=== PATIENT | male | born 1985 | race Caucasian/White ===

== ENCOUNTER 2016-11-01 16:13 | Emergency (ER) | payer BC, OTHER ==
[2016-11-01 18:24] VITALS: BP 130/80
--- NOTE | 2016-11-01 19:00 | UC ---
Throat Pain/Nasal Cr HPI - HPI Summary HPI Summary: Nasal congestion, cough, ST, chilled starting 2 days ago. Mucus is all yellow and green, worried he has "some kind of infection." Having occasional wheezing but doesn't typically have breathing problems. Also has been having L shoulder pain for some months, no hx of injury or surgery , would like referral to see someone for this. - History of Current Complaint Chief Complaint: UCRespiratory Stated Complaint: COUGH/CONGESTION/LEFT SHOULDER Time Seen by Provider: 11/01/16 18:55 Hx Obtained From: Patient Onset/Duration: Gradual Onset, Lasting Days Severity: Moderate Cough: Sputum Appears - yellow Associated Signs & Symptoms: Positive: Wheezing, Nasal Discharge, Fever - first night only. Negative: Vomiting, Rash - Allergies/Home Medications Allergies/Adverse Reactions: Allergies Allergy/AdvReac Type Severity Reaction Status Date / Time No Known Allergies Allergy Verified 11/01/16 18:24 Home Medications: Home Medications Pseudoephedrine-Guaifenesin [Mucinex D 60-600 mg] 1 tab PO ONCE 11/01/16 [ History Confirmed 11/01/16] PMH/Surg Hx/FS Hx/Imm Hx Previously Healthy: Yes Cardiovascular History Of: Denies: Pacemaker/ICD - Surgical History Surgical History: Yes Surgery Procedure, Year, and Place: ENDOSCOPY-; Carpal tunnel release to extract ganglion cyst 10/2012 - Family History Known Family History: Positive: Cardiac Disease - mother Family History: no known history of cardio-vascular disorders - Social History Occupation: Employed Part-time Alcohol Use: Occasionally Substance Use Type: None Smoking Status (MU): Heavy Every Day Tobacco Smoker Type: Cigarettes Amount Used/How Often: 1/2 PPD Length of Time of Smoking/Using Tobacco: 5 years Have You Smoked in the Last Year: Yes Household Exposure Type: Cigarettes - Immunization History Most Recent Influenza Vaccination: Not the Season Review of Systems Constitutional: Chills Skin: Negative Eyes: Negative ENT: Sore Throat, Nasal Discharge Respiratory: Cough Cardiovascular: Negative Gastrointestinal: Negative Genitourinary: Negative Motor: Negative Neurovascular: Negative Musculoskeletal: Arthralgia Neurological: Negative Psychological: Negative All Other Systems Reviewed And Are Negative: Yes Physical Exam Triage Information Reviewed: Yes Appearance: Well-Appearing, No Pain Distress, Well-Nourished Vital Signs: Initial Vital Signs Temp 99.2 F 11/01/16 18:19 Pulse 89 11/01/16 18:19 Resp 16 11/01/16 18:19 BP 130/80 11/01/16 18:19 Pulse Ox 99 11/01/16 18:19 Vital Signs Reviewed: Yes Eye Exam: Normal Eyes: Positive: Conjunctiva Clear ENT: Positive: Hearing grossly normal, Pharynx normal, Nasal congestion, Nasal drainage, TMs normal. Negative: Tonsillar swelling Dental Exam: Normal Neck exam: Normal Neck: Positive: Supple, Nontender, No Lymphadenopathy Respiratory: Positive: No respiratory distress, Wheezing - minimal Cardiovascular Exam: Normal Cardiovascular: Positive: RRR, No Murmur Musculoskeletal: Positive: ROM Limited @ - L shoulder, pain with abduction past 90 deg Neurological Exam: Normal Psychological Exam: Normal Skin Exam: Normal Throat Pain/Nasal Course/Dx - Differential Dx/Diagnosis Provider Diagnoses: URI, likely viral. L shoulder pain Discharge - Discharge Plan Condition: Stable Disposition: HOME Prescriptions: Albuterol HFA INHALER* [Ventolin HFA Inhaler*] 1 - 2 puff INH Q4H PRN #1 mdi PRN Reason: wheeze, cough Benzonatate CAP* [Tessalon CAP*] 100 mg PO TID PRN #30 cap PRN Reason: Cough Patient Education Materials: Upper Respiratory Infection (ED), Shoulder Pain ( ED) Forms: *Work Release Referrals: Amarjit Leon MD [Primary Care Provider] - If Needed Edwar Schulte MD [Medical Doctor] - Additional Instructions: Call or return if you develop increasing fever, shortness of breath, chest pain , bloody sputum, or otherwise worsen. If you have not improved at all after several days, contact your primary care physician or return here. INHALED BRONCHODILATORS: You have received a prescription for an inhaled bronchodilator -- a medication which stimulates the airways in the lung to dilate. This improves the flow of air in asthma, bronchitis, and emphysema. These medicines have some similarity to adrenaline, and can cause similar side effects: shakiness, racing heart, and a sense of nervousness. These side effects can be reduced with the use of a spacer and usually decrease with time. Use 1-2 puffs up to every 4 hours as needed for wheezing or tightness in your chest. It may be helpful to use preventatively, such as before bedtime or before going outside into cold air. IF YOU FIND THAT YOU ARE CONSISTENTLY NEEDING THE INHALER MORE THAN 6 TIMES PER DAY, PLEASE CALL OR RETURN FOR FURTHER EVALUATION. TESSALON: You have received a prescription for Tessalon Perles (benzonatate). This is a non-narcotic medicine for relief of cough. It usually works in about 15- 20 minutes and lasts around four hours. When they work, they are usually helpful with a lingering cough at the end of an illness. If you do not find them helpful now, wait several days and try again, as they may help your cough later on. Tessalon Perles should be swallowed. They should not be chewed or dissolved in the mouth (this can produce temporary numbing of the mouth and choking can occur). If you develop any adverse effects such as wheezing, shortness of breath, hives, rash, itching, or lightheadedness, please return at once. You should arrange for an orthopedic appointment to diagnose and treat your shoulder pain.
== END 2016-11-01 19:02 | disposition home or self-care (01) ==
LOC: UCCORT 16:13
DX: J06.9 Acute upper respiratory infection, unspecified (principal); M25.512 Pain in left shoulder; R09.81 Nasal congestion; F17.210 Nicotine dependence, cigarettes, uncomplicated
CPT/HCPCS: 99212; G0463

== ENCOUNTER 2017-01-05 19:30 | Emergency (ER) | payer BC ==
[2017-01-05 20:55] VITALS: BP 141/85
[2017-01-05] MEDS ORDERED: Albuterol 2.5 MG/3 ML NEB.SOL* (0.083%) INH ONE (21:34)
[2017-01-05] MEDS ORDERED: guaiFENesin/CODIEN 100MG-10MG* 5 ML UDC PO ONE (21:34)
[2017-01-05] MEDS ORDERED: Albuterol HFA INHALER* 8 gm MDI INH ONE (21:34)
--- NOTE | 2017-01-05 21:40 | UC ---
Respiratory Complaint HPI - HPI Summary HPI Summary: Patient has had increases coughing and his head feels like it is going to explode. mild fever. - History of Current Complaint Chief Complaint: UCGeneralIllness Stated Complaint: FLU SXS Time Seen by Provider: 01/05/17 20:50 Hx Obtained From: Patient Onset/Duration: Sudden Onset, Lasting Days Timing: Constant Severity Initially: Moderate Severity Currently: Severe Character: Cough: Nonproductive Aggravating Factors: Exertion, Deep Breaths, Recumbent Position Alleviating Factors: Nothing Associated Signs And Symptoms: Positive: Dyspnea, Fever, Chills, Wheezing, URI, Nasal Congestion, Sinus Discomfort - Risk Factors Pulmonary Embolism Risk Factors: Negative Cardiac Risk Factors: Negative Pseudomonas Risk Factors: Negative Tuberculosis Risk Factors: Negative - Allergies/Home Medications Allergies/Adverse Reactions: Allergies Allergy/AdvReac Type Severity Reaction Status Date / Time No Known Allergies Allergy Verified 01/05/17 20:55 PMH/Surg Hx/FS Hx/Imm Hx Previously Healthy: Yes Cardiovascular History Of: Denies: Pacemaker/ICD - Surgical History Surgical History: Yes Surgery Procedure, Year, and Place: ENDOSCOPY-; Carpal tunnel release to extract ganglion cyst 10/2012 - Family History Known Family History: Positive: Unknown, Cardiac Disease - mother Family History: no known history of cardio-vascular disorders - Social History Alcohol Use: Rare Substance Use Type: None Smoking Status (MU): Heavy Every Day Tobacco Smoker Type: Cigarettes Amount Used/How Often: 1/2 PPD Length of Time of Smoking/Using Tobacco: 5 years Have You Smoked in the Last Year: Yes Household Exposure Type: Cigarettes - Immunization History Most Recent Influenza Vaccination: 9718-4415 Review of Systems Constitutional: Fever, Fatigue Skin: Negative Eyes: Negative ENT: Sore Throat Respiratory: Shortness Of Breath, Cough Cardiovascular: Negative Gastrointestinal: Negative Genitourinary: Negative Motor: Negative Neurovascular: Negative Musculoskeletal: Negative Neurological: Negative Psychological: Negative All Other Systems Reviewed And Are Negative: Yes Physical Exam Triage Information Reviewed: Yes Appearance: Well-Nourished, Ill-Appearing, Pain Distress Vital Signs: Initial Vital Signs Temp 100.8 F 01/05/17 20:51 Pulse 104 01/05/17 20:51 Resp 17 01/05/17 20:51 BP 141/85 01/05/17 20:51 Pulse Ox 98 01/05/17 20:51 Vital Signs Reviewed: Yes Eye Exam: Normal ENT: Positive: Pharyngeal erythema, Nasal drainage, TM red, Tonsillar swelling Dental Exam: Normal Neck exam: Normal Neck: Positive: Supple, Nontender Respiratory Exam: Normal Respiratory: Positive: Chest non-tender, Respiratory distress - mild, Rhonchi, Wheezing, Expiration, Inspiration Cardiovascular Exam: Normal Cardiovascular: Positive: No Murmur, Pulses Normal, Tachycardia Abdominal Exam: Normal Abdomen Description: Positive: Nontender, No Organomegaly, Soft Bowel Sounds: Positive: Present Musculoskeletal Exam: Normal Musculoskeletal: Positive: Strength Intact, ROM Intact, No Edema Neurological Exam: Normal Neurological: Positive: Alert, Muscle Tone Normal Psychological Exam: Normal Skin Exam: Normal UC Diagnostic Evaluation - Laboratory O2 Sat by Pulse Oximetry: 98 Respiratory Course/Dx - Course Course Of Treatment: hx obtained, exam performed, meds reviewed, rapid flu is negative, albuterol treatement given, meds dispensed and prescribed. - Differential Dx/Diagnosis Provider Diagnoses: viral syndrome. bronchospasm. fever Discharge - Discharge Plan Condition: Stable Disposition: HOME Patient Education Materials: Bronchospasm (ED), Viral Syndrome (ED) Forms: *School Release Additional Instructions: Take the medication as prescribed. Increase your fluid intake and get plenty of rest. follow up with any increasing symptoms.
[2017-01-05] MEDS ORDERED: Ibuprofen TAB* 600 MG PO ONE (21:45)
== END 2017-01-05 21:58 | disposition home or self-care (01) ==
LOC: UCCORT 19:30
DX: B34.9 Viral infection, unspecified (principal); J98.01 Acute bronchospasm; F17.210 Nicotine dependence, cigarettes, uncomplicated; R50.9 Fever, unspecified
CPT/HCPCS: 87502; 99213; A9270-GY; G0463

== ENCOUNTER 2017-09-11 21:02 | Emergency (ER) | payer BC ==
[2017-09-11 21:12] VITALS: BP 145/91
--- NOTE | 2017-09-11 21:57 | UC ---
Nausea/Vomiting/Diarrhea HPI - HPI Summary HPI Summary: 32 year old male presents with nausea, vomiting, and diarrhea. - History of Current Complaint Chief Complaint: UCGI Stated Complaint: flu symptoms Time Seen by Provider: 09/11/17 21:08 Hx Obtained From: Patient Onset/Duration: Sudden Onset Severity Initially: Moderate Severity Currently: Moderate Pain Intensity: 0 Pain Scale Used: 0-10 Numeric Location: Diffuse Character: Cramping Aggravating Factor(s): Food Alleviating Factor(s): Nothing - Allergies/Home Medications Allergies/Adverse Reactions: Allergies Allergy/AdvReac Type Severity Reaction Status Date / Time No Known Allergies Allergy Verified 09/11/17 21:08 Home Medications: Home Medications Vitamin THERAPEUTIC TAB* [Theragran TAB*] 1 tab PO DAILY 09/11/17 [History Confirmed 09/11/17] PMH/Surg Hx/FS Hx/Imm Hx Previously Healthy: Yes - Surgical History Surgical History: Yes Surgery Procedure, Year, and Place: ENDOSCOPY-; Carpal tunnel release to extract ganglion cyst 10/2012 - Family History Known Family History: Positive: Unknown, Cardiac Disease - mother Family History: no known history of cardio-vascular disorders - Social History Alcohol Use: None Substance Use Type: None Smoking Status (MU): Heavy Every Day Tobacco Smoker Type: Cigarettes Amount Used/How Often: 1/2 PPD Length of Time of Smoking/Using Tobacco: Since Age 24 Have You Smoked in the Last Year: Yes Household Exposure Type: Cigarettes - Immunization History Most Recent Influenza Vaccination: July 2017 Review of Systems Constitutional: Negative Skin: Negative Eyes: Negative ENT: Negative Respiratory: Negative Cardiovascular: Negative Gastrointestinal: Abdominal Pain Genitourinary: Negative Motor: Negative Neurovascular: Negative Musculoskeletal: Negative Neurological: Negative Psychological: Negative All Other Systems Reviewed And Are Negative: Yes Physical Exam Triage Information Reviewed: Yes Vital Signs: Initial Vital Signs Temp 36.8 C 09/11/17 21:07 Pulse 96 09/11/17 21:07 Resp 16 09/11/17 21:07 BP 145/91 09/11/17 21:07 Pulse Ox 99 09/11/17 21:07 Vital Signs Reviewed: Yes Eye Exam: Normal ENT Exam: Normal Dental Exam: Normal Neck exam: Normal Neck: Positive: 1 Respiratory Exam: Normal Cardiovascular Exam: Normal Abdominal Exam: Normal Musculoskeletal Exam: Normal Neurological Exam: Normal Psychological Exam: Normal Skin Exam: Normal Naus/Vom/Diarrhea Course/Dx - Differential Dx/Diagnosis Provider Diagnoses: diarrhea. vomitting. stomach cramps Condition At Discharge: Stable Discharge - Discharge Plan Condition: Stable Disposition: HOME Patient Education Materials: Acute Nausea and Vomiting (ED) Forms: *Work Release Referrals: Kishan Borden [Primary Care Provider] -
== END 2017-09-11 21:49 | disposition home or self-care (01) ==
LOC: UCCORT 21:02
DX: R19.7 Diarrhea, unspecified (principal); R11.11 Vomiting without nausea; R10.9 Unspecified abdominal pain; Z72.0 Tobacco use
CPT/HCPCS: 99211; G0463

== ENCOUNTER 2017-11-15 17:45 | Emergency (ER) | payer BC ==
[2017-11-15 18:36] VITALS: BP 142/88
[2017-11-15] MEDS ORDERED: Ondansetron ODT TAB* 4 MG PO ONE (21:37)
--- NOTE | 2017-11-15 21:46 | UC ---
Abdominal Pain Male HPI - HPI Summary HPI Summary: FEVER LAST NIGHT AND ONSET OF NAUSEA, VOMITING AND LOOSE STOOLS. 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 IS HOPING FOR [employer] AND A WORK NOTE. NO COUGH, CONGESTION, MURPHY, MYALGIAS. - History of Current Complaint Chief Complaint: UCGeneralIllness Stated Complaint: VOMITING/DIARRHEA Time Seen by Provider: 11/15/17 21:32 Hx Obtained From: Patient Onset/Duration: Sudden Onset, Lasting Hours, Still Present Timing: Constant Severity Initially: Moderate Severity Currently: Moderate Pain Intensity: 0 Pain Scale Used: 0-10 Numeric Location: Diffuse Radiates: No Character: Cramping Aggravating Factor(s): Food Alleviating Factor(s): Nothing Associated Signs And Symptoms: Positive: Fever, Decreased Appetite, Nausea, Vomiting, Diarrhea. Negative: Constipation, Blood in Stool, Urinary Symptoms - Allergies/Home Medications Allergies/Adverse Reactions: Allergies Allergy/AdvReac Type Severity Reaction Status Date / Time No Known Allergies Allergy Verified 11/15/17 18:35 PMH/Surg Hx/FS Hx/Imm Hx - Additional Past Medical History Additional PMH: CHRONIC BACK PAIN, DJD - Surgical History Surgical History: Yes Surgery Procedure, Year, and Place: ENDOSCOPY-; Carpal tunnel release to extract ganglion cyst 10/2012 - Family History Known Family History: Positive: Cardiac Disease - mother - Social History Alcohol Use: None Substance Use Type: None Smoking Status (MU): Heavy Every Day Tobacco Smoker Type: Cigarettes Amount Used/How Often: 1/2 PPD Length of Time of Smoking/Using Tobacco: Since Age 24 Have You Smoked in the Last Year: Yes Household Exposure Type: Cigarettes - Immunization History Most Recent Influenza Vaccination: July 2017 Review of Systems Constitutional: Fever, Fatigue ENT: Negative Respiratory: Negative Cardiovascular: Negative Gastrointestinal: Abdominal Pain, Vomiting, Diarrhea, Nausea Genitourinary: Negative All Other Systems Reviewed And Are Negative: Yes Physical Exam Triage Information Reviewed: Yes Appearance: No Pain Distress, Well-Nourished, Ill-Appearing - MILD Vital Signs: Initial Vital Signs Temp 97.9 F 11/15/17 18:32 Pulse 85 11/15/17 18:32 Resp 16 11/15/17 18:32 BP 142/88 11/15/17 18:32 Pulse Ox 100 11/15/17 18:32 Vital Signs Reviewed: Yes Eyes: Positive: Conjunctiva Clear ENT: Positive: Hearing grossly normal, Pharynx normal, TMs normal Neck: Positive: Supple, Nontender, No Lymphadenopathy Respiratory Exam: Normal Cardiovascular Exam: Normal Abdomen Description: Positive: Soft, Other: - MILDLY TENDER DIFFUSELY. Negative : CVA Tenderness (R), CVA Tenderness (L), Distended, Guarding Bowel Sounds: Positive: Present Musculoskeletal: Positive: No Edema Neurological: Positive: Alert Psychological: Positive: Age Appropriate Behavior Skin: Negative: rashes Abd Pain Male Course/Dx - Differential Dx/Clinical Impression Provider Diagnoses: ACUTE GASTROENTERITIS Discharge - Discharge Plan Condition: Stable Disposition: HOME Prescriptions: Ondansetron ODT TAB* [Zofran Odt TAB*] 1 - 2 tab PO Q8H PRN #30 tab.odt PRN Reason: Nausea/Vomiting Patient Education Materials: Gastroenteritis (ED) Forms: *Work Release Referrals: Kishan Borden [Primary Care Provider] - If Needed Additional Instructions: GASTROENTERITIS: You have gastroenteritis ("intestinal flu"). This disease is usually caused by a virus. There is no specific treatment. The disease will end by itself. For now, the main danger is dehydration. Give clear liquids. Examples include Pedialyte, Gatorade, clear broth, juices, flat sodas, and jello water. Medications may be prescribed by the physician for special cases. Once tolerated, the clear liquid diet may be supplemented with rice, cereal, toast, applesauce, or bananas. Call the physician or go to the hospital if vomiting increases or blood appears in the bowel movement or vomitus; if you fail to improve, or if signs of dehydration occur (tongue and mouth become dry, lethargy). ENSURE ADEQUATE HYDRATION. CLEAR LIQUIDS, BLAND DIET. AVOID CAFFEINE, DAIRY, GREASY, SPICY FOODS. ONCE YOU ARE TOLERATING CLEAR LIQUIDS YOU CAN ADVANCE TO SIMPLE, BLAND FOODS.
== END 2017-11-15 22:01 | disposition home or self-care (01) ==
LOC: UCCORT 17:45
DX: K52.9 Noninfective gastroenteritis and colitis, unspecified (principal); F17.210 Nicotine dependence, cigarettes, uncomplicated
CPT/HCPCS: 87502; 99212; A9270-GY; G0463

== ENCOUNTER 2017-11-20 15:22 | Emergency (ER) | payer BC ==
[2017-11-20 16:31] VITALS: BP 142/97
--- NOTE | 2017-11-20 17:08 | UC ---
FLU HPI - HPI Summary HPI Summary: Pt here w/ ongoing illness since 11/14/2017. Started as fever, nausea, vomiting - these sx have subsided and he's staying hydrated but now he has URI sx of nasal congestion, cough, aches. Denies fever since diarrhea stopped a few days ago. has been taking ibuprofen intermittently for aches which helps. 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 Was swabbed for influenza on 11/15/2017 and was neg. Does not want retesting done today despite new URI sx. - History of Current Complaint Chief Complaint: UCGeneralIllness Stated Complaint: DIARRHEA, VOMITING, CONGESTION Time Seen by Provider: 11/20/17 16:56 Hx Obtained From: Patient Pain Intensity: 0 - Allergy/Home Medications Allergies/Adverse Reactions: Allergies Allergy/AdvReac Type Severity Reaction Status Date / Time No Known Allergies Allergy Verified 11/20/17 16:31 Home Medications: Home Medications NK [No Home Medications Reported] 11/20/17 [History Confirmed 11/20/17] PMH/Surg Hx/FS Hx/Imm Hx Previously Healthy: No - GI viral syndrome - Surgical History Surgical History: Yes Surgery Procedure, Year, and Place: ENDOSCOPY-; Carpal tunnel release to extract ganglion cyst 10/2012 - Family History Known Family History: Positive: Cardiac Disease - mother - possibly of [place] but not sure - Social History Occupation: Employed Full-time - RN Lives: With Family Alcohol Use: None Substance Use Type: None Smoking Status (MU): Former Smoker - pt reports he does not currently smoke but smoked in the past - fiance smokes but not in the house Type: Cigarettes Amount Used/How Often: 1/2 PPD Length of Time of Smoking/Using Tobacco: Since Age 24 Have You Smoked in the Last Year: Yes Household Exposure Type: Cigarettes - Immunization History Most Recent Influenza Vaccination: July 2017 Review of Systems Constitutional: Fatigue Eyes: Negative ENT: Nasal Discharge, Sinus Congestion Respiratory: Cough Cardiovascular: Negative Gastrointestinal: Negative Genitourinary: Negative Motor: Negative Neurovascular: Negative Musculoskeletal: Arthralgia Neurological: Negative Psychological: Negative Is Patient Immunocompromised?: No All Other Systems Reviewed And Are Negative: Yes Physical Exam Triage Information Reviewed: Yes Appearance: No Pain Distress, Well-Nourished, Ill-Appearing - mildly fatigued, moist warm skin Vital Signs: Initial Vital Signs Temp 98.6 F 11/20/17 16:25 Pulse 89 11/20/17 16:25 Resp 17 11/20/17 16:25 BP 142/97 11/20/17 16:25 Pulse Ox 98 11/20/17 16:25 Vital Signs Reviewed: Yes Eye Exam: Normal Eyes: Positive: Conjunctiva Clear ENT: Positive: Normal ENT inspection, Hearing grossly normal, Pharynx normal - cobblestoning, Nasal congestion, TMs normal. Negative: Tonsillar swelling, Tonsillar exudate, Trismus, Muffled voice, Hoarse voice, Sinus tenderness Neck exam: Normal Neck: Positive: Supple, Nontender, No Lymphadenopathy Respiratory Exam: Normal Respiratory: Positive: Lungs clear, Normal breath sounds Cardiovascular Exam: Normal Cardiovascular: Positive: RRR Abdominal Exam: Normal Abdomen Description: Positive: Nontender, No Organomegaly, Soft Bowel Sounds: Positive: Present Musculoskeletal Exam: Normal Musculoskeletal: Positive: Strength Intact Neurological Exam: Normal Neurological: Positive: Alert Psychological Exam: Normal Skin Exam: Normal Flu Course/Dx - Course Course Of Treatment: Pt here w/ new onset URI sx a few days after GI sx. 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 Does not want influenza testing today. Out of work until Thursday and if still has sx will f/u w/ PCP. Danger s/sx reviewed for when to go to ED. Pt agrees w/ plan. - Differential Dx/Diagnosis Provider Diagnoses: Viral URI Discharge - Discharge Plan Condition: Stable Disposition: HOME Patient Education Materials: Upper Respiratory Infection (ED) Forms: *Work Release Referrals: Candis MAYA,Kishan Hernandez [Primary Care Provider] - Additional Instructions: Perform nasal wash/netti pot 2 x day with 8 ounces of warm water + 1/4 teaspoon of salt or saline nasal spray as needed Perform throat gargles with warm salt water as needed Drink 60+ ounces of water daily Sleep 8+ hours per night Avoid Dairy and sugar Drink hot herbal/decaf tea with lemon & honey Drink chicken broth (preferably organic, free range chicken) Use a humidifier in your house, but especially near bed at night. You may also keep home temperature at 68F or less. Try a facial steam with or without eucalyptus essential oil or Case's vapor rub for decongestion. Cough drops Avoid smoke, candles, perfumes/colonge, air fresheners, scented lotions, etc Consider taking Vitamin D3 5,000iu and Vitamin C 1,000mg every day during illness *If you feel worse, go to ED
== END 2017-11-20 17:11 | disposition home or self-care (01) ==
LOC: UCCORT 15:22
DX: J06.9 Acute upper respiratory infection, unspecified (principal); Z87.891 Personal history of nicotine dependence
CPT/HCPCS: 99211; G0463

== ENCOUNTER 2018-03-03 08:28 | Emergency (ER) | payer BC ==
[2018-03-03 08:43] VITALS: BP 151/86
--- NOTE | 2018-03-03 09:05 | UC ---
Back Pain HPI - HPI Summary HPI Summary: Low back pain for about 1-2 weeks. It may be related to doing more yard work. No obvious work related injury. He denies radiation, numbness, weakness or saddle anesthesia. He would like to start PT. he is a smoker. - History of Current Complaint Chief Complaint: UCBackPain Stated Complaint: BACK PAIN Time Seen by Provider: 03/03/18 08:48 Hx Obtained From: Patient Onset/Duration: Gradual Onset, Lasting Weeks Timing: Constant, Lasting Days Severity Initially: Moderate Severity Currently: Moderate Pain Intensity: 4 Back Pain: Is Discrete @ Character: Sharp, Aching Aggravating Factor(s): Movement, Lifting, Bending Alleviating Factor(s): Rest, Position Associated Signs And Symptoms: Negative: Swelling, Fever, Weakness, Numbness, Bladder Incontinence, Bowel Incontinence Related History: Similar Episode Dx As - prior low back injuries. X ray has shown DDD in the past. - Allergies/Home Medications Allergies/Adverse Reactions: Allergies Allergy/AdvReac Type Severity Reaction Status Date / Time No Known Allergies Allergy Verified 03/03/18 08:43 PMH/Surg Hx/FS Hx/Imm Hx Previously Healthy: No - smoker. DDD. - Surgical History Surgical History: Yes Surgery Procedure, Year, and Place: ENDOSCOPY-; Carpal tunnel release to extract ganglion cyst 10/2012 - Family History Known Family History: Positive: Unknown, Cardiac Disease - mother - possibly of [place] but not sure Family History: no known history of cardio-vascular disorders - Social History Occupation: Employed Full-time Lives: With Family Alcohol Use: None Substance Use Type: None Smoking Status (MU): Light Every Day Tobacco Smoker Type: Cigarettes Amount Used/How Often: 1/2 PPD Length of Time of Smoking/Using Tobacco: Since Age 24 Have You Smoked in the Last Year: Yes Household Exposure Type: Cigarettes - Immunization History Most Recent Influenza Vaccination: July 2017 Review of Systems Musculoskeletal: Decreased ROM, Myalgia All Other Systems Reviewed And Are Negative: Yes Physical Exam Triage Information Reviewed: Yes Appearance: Well-Appearing, No Pain Distress, Well-Nourished Vital Signs: Initial Vital Signs Temp 98.7 F 03/03/18 08:37 Pulse 83 03/03/18 08:37 Resp 16 03/03/18 08:37 BP 151/86 03/03/18 08:37 Pulse Ox 100 03/03/18 08:37 Vital Signs Reviewed: Yes Eyes: Positive: Conjunctiva Clear ENT: Positive: Normal ENT inspection Neck: Positive: Supple, Nontender, No Lymphadenopathy Respiratory: Positive: Lungs clear, Normal breath sounds, No respiratory distress, No accessory muscle use. Negative: Respiratory distress, Decreased breath sounds, Accessory muscle use, Crackles, Rhonchi, Stridor, Wheezing Cardiovascular: Positive: Brisk Capillary Refill Abdomen Description: Positive: No Organomegaly, Soft. Negative: Distended, Guarding Musculoskeletal: Positive: Strength Intact, ROM Intact, No Edema, Other: - Neg straight leg raise chris. There is no midline spine percussion tendenress. There is tenderness Left SI joint area. Neurological: Positive: Alert, Muscle Tone Normal. Negative: Fatigued, Abnormal Muscle Tone, Other: - chris patella and achilles reflexes are intact and symmetric. Psychological: Positive: Normal Response To Family Skin: Negative: rashes Back Pain Course/Dx - Differential Dx/Diagnosis Provider Diagnoses: low back pain. low back strain. DDD Discharge - Sign-Out/Discharge Documenting (check all that apply): Discharge/Admit/Transfer - Discharge Plan Condition: Good Disposition: HOME Prescriptions: Naproxen [Naproxen 500 mg tab] 500 mg PO BID PRN #20 tablet PRN Reason: Pain Patient Education Materials: Low Back Strain (ED), Back Pain (ED), Lower Back Exercises (ED) Forms: *Work Release Referrals: Candis MAYA,Kishan Hernandez [Primary Care Provider] - Additional Instructions: try to reduce or quit smoking and PT as we prescribed. - Billing Disposition and Condition Condition: GOOD Disposition: Home
== END 2018-03-03 09:07 | disposition home or self-care (01) ==
LOC: UCCORT 08:28
DX: S39.012A Strain of muscle, fascia and tendon of lower back, initial encounter (principal); X50.0XXA Overexertion from strenuous movement or load, initial encounter; Y93.H2 Activity, gardening and landscaping; Y92.007 Garden or yard of unspecified non-institutional (private) residence as the place of occurrence of the external cause; M51.36 Other intervertebral disc degeneration, lumbar region; F17.210 Nicotine dependence, cigarettes, uncomplicated
CPT/HCPCS: 99211; G0463

== ENCOUNTER 2018-03-28 11:12 | Emergency (ER) | payer BC ==
[2018-03-28 12:19] VITALS: BP 145/89
[2018-03-28] MEDS ORDERED: Ondansetron ODT TAB* 4 MG PO ONE (12:34)
--- NOTE | 2018-03-28 13:12 | UC ---
Nausea/Vomiting/Diarrhea HPI - HPI Summary HPI Summary: C/o N/V/D, intermittent diffuse mild abdo cramping with emesis starting last night. States vomiting x 5, diarrhea x 5 since yesterday. Last emesis this am at 5am. Denies fever, rash, cough, sore throat, cp, sob, urine sx, blood in emesis or stool, recent foreign travel.. Med hx = back pain. - History of Current Complaint Hx Obtained From: Patient Onset/Duration: Sudden Onset, Lasting Hours Severity Initially: Mild Severity Currently: Mild Pain Intensity: 4 Pain Scale Used: 0-10 Numeric Location: Diffuse Character: Cramping Aggravating Factor(s): Food Nausea/Vomiting Presence: Nauseated, Vomiting Vomiting Frequency: At Meal Time Nausea/Vomiting Duration: 12-24 hours Vomiting Characteristics: Nonbilious Diarrhea Presence: Yes Diarrhea Frequency: Every 3-4 hours Diarrhea Duration: 12-24 hours Diarrhea Characteristics: Watery <Checo Bolden - Last Filed: 03/28/18 13:19> <Janee Villafuerte - Last Filed: 03/29/18 19:40> - History of Current Complaint Chief Complaint: UCGI Stated Complaint: UPSET STOMACH, NAUSEA Time Seen by Provider: 03/28/18 12:30 - Allergies/Home Medications Allergies/Adverse Reactions: Allergies Allergy/AdvReac Type Severity Reaction Status Date / Time No Known Allergies Allergy Verified 03/28/18 12:18 PMH/Surg Hx/FS Hx/Imm Hx - Surgical History Surgical History: Yes Surgery Procedure, Year, and Place: ENDOSCOPY-; Carpal tunnel release to extract ganglion cyst 10/2012 - Family History Known Family History: Positive: Unknown, Cardiac Disease - mother - possibly of [place] but not sure Family History: no known history of cardio-vascular disorders - Social History Alcohol Use: None Substance Use Type: None Smoking Status (MU): Light Every Day Tobacco Smoker Type: Cigarettes Amount Used/How Often: 1/2 PPD Length of Time of Smoking/Using Tobacco: Since Age 24 Have You Smoked in the Last Year: Yes Household Exposure Type: Cigarettes - Immunization History Most Recent Influenza Vaccination: July 2017 <Checo Bolden - Last Filed: 03/28/18 13:19> Review of Systems Constitutional: Negative Skin: Negative Eyes: Negative ENT: Negative Respiratory: Negative Cardiovascular: Negative Gastrointestinal: Other - abdo cramping Genitourinary: Negative Motor: Negative Neurovascular: Negative Musculoskeletal: Negative Neurological: Negative Psychological: Negative Is Patient Immunocompromised?: No All Other Systems Reviewed And Are Negative: Yes <Checo Bolden - Last Filed: 03/28/18 13:19> Physical Exam Triage Information Reviewed: Yes Appearance: Well-Appearing Vital Signs: Initial Vital Signs Temp 98.3 F 03/28/18 12:13 Pulse 94 03/28/18 12:13 Resp 16 03/28/18 12:13 BP 145/89 03/28/18 12:13 Pulse Ox 98 03/28/18 12:13 Vital Signs Reviewed: Yes Eyes: Positive: Conjunctiva Clear Neck exam: Normal Respiratory Exam: Normal Cardiovascular Exam: Normal Abdomen Description: Positive: Nontender Musculoskeletal Exam: Normal Neurological Exam: Normal Psychological Exam: Normal Skin Exam: Normal <Checo Bolden - Last Filed: 03/28/18 13:19> Vital Signs: Initial Vital Signs Temp 98.3 F 03/28/18 12:13 Pulse 94 03/28/18 12:13 Resp 16 03/28/18 12:13 BP 145/89 03/28/18 12:13 Pulse Ox 98 03/28/18 12:13 <Janee Villafuerte - Last Filed: 03/29/18 19:40> Re-Evaluation - Re-Evaluation 1 Re-Evaluation Time: 13:19 Comment: pt nausea improved with zofran. <Checo Bolden - Last Filed: 03/28/18 13:19> Naus/Vom/Diarrhea Course/Dx - Course Course Of Treatment: C/o N/V/D, intermittent diffuse mild abdo cramping with emesis starting last night. States vomiting x 5, diarrhea x 5 since yesterday. Last emesis this am at 5am. Denies fever, rash, cough, sore throat, cp, sob, urine sx, blood in emesis or stool.. Med hx = back pain. VS wnl. Nausea improved with zofran. Tolerated water PO. Rx for phenergan. - Differential Dx/Diagnosis Provider Diagnoses: N/V/D <Checo Bolden - Last Filed: 03/28/18 13:19> <Janee Villafuerte - Last Filed: 03/29/18 19:40> - Differential Dx/Diagnosis Condition At Discharge: Stable Discharge - Sign-Out/Discharge Documenting (check all that apply): Discharge/Admit/Transfer - Billing Disposition and Condition Condition: STABLE Disposition: Home <YuanCheco - Last Filed: 03/28/18 13:19> - Billing Disposition and Condition Condition: STABLE Disposition: Home <Janee Villafuerte - Last Filed: 03/29/18 19:40> - Discharge Plan Condition: Stable Disposition: HOME Prescriptions: Promethazine TAB* [Phenergan TAB*] 25 mg PO Q8H PRN 5 Days #10 tab PRN Reason: Nausea Patient Education Materials: Acute Nausea and Vomiting (ED), Acute Diarrhea (ED ) Forms: *Work Release Referrals: Candis MAYA,Kishan Hernandez [Primary Care Provider] - Additional Instructions: Drink plenty of fliuds. [place] diet. Follow up with primary care. Return for any new or worsening symptoms. Attestation Statement User Type: Provider - I was available for consult. This patient was seen by the PENG. The patient was not presented to, seen by, or examined by me. -Kajal <Janee Villafuerte - Last Filed: 03/29/18 19:40>
== END 2018-03-28 13:32 | disposition home or self-care (01) ==
LOC: UCCORT 11:12
DX: R11.2 Nausea with vomiting, unspecified (principal); R19.7 Diarrhea, unspecified; F17.210 Nicotine dependence, cigarettes, uncomplicated
CPT/HCPCS: 99212; A9270-GY; G0463

== ENCOUNTER 2018-04-21 08:07 | Emergency (ER) | payer BC ==
[2018-04-21 08:36] VITALS: BP 141/90
--- NOTE | 2018-04-21 09:26 | UC ---
Respiratory Complaint HPI - HPI Summary HPI Summary: Sore throat and congestion for about 8 days. He has a cough as well. No known fever. NO prior sinus or lung disease. - History of Current Complaint Chief Complaint: UCRespiratory Stated Complaint: COLD SYMPTOMS Time Seen by Provider: 04/21/18 09:12 Hx Obtained From: Patient Onset/Duration: Gradual Onset, Lasting Days Timing: Constant Severity Initially: Moderate Severity Currently: Moderate Pain Intensity: 0 Character: Cough: Nonproductive Aggravating Factors: Deep Breaths, Recumbent Position Alleviating Factors: Upright Position, Spontaneous Resolution Associated Signs And Symptoms: Positive: URI, Nasal Congestion. Negative: Dyspnea, Fever, Chills, Calf Pain, Calf Swelling - Allergies/Home Medications Allergies/Adverse Reactions: Allergies Allergy/AdvReac Type Severity Reaction Status Date / Time No Known Allergies Allergy Verified 04/21/18 08:31 Home Medications: Home Medications Acetaminophen TAB* [Tylenol TAB*] 650 mg PO Q4H PRN 04/21/18 [History Confirmed 04/21/18] Albuterol HFA INHALER* [Ventolin HFA Inhaler*] 1 puff INH Q4H PRN 04/21/18 [ History Confirmed 04/21/18] Cold And Sinus Med 1 tab PO Q6HR PRN 04/21/18 [History Confirmed 04/21/18] PMH/Surg Hx/FS Hx/Imm Hx Previously Healthy: No - smoker. - Surgical History Surgical History: Yes Surgery Procedure, Year, and Place: ENDOSCOPY-; Carpal tunnel release to extract ganglion cyst 10/2012 - Family History Known Family History: Positive: Unknown, Cardiac Disease - mother - possibly of [place] but not sure Family History: no known history of cardio-vascular disorders - Social History Occupation: Employed Full-time Alcohol Use: Occasionally Substance Use Type: None Smoking Status (MU): Light Every Day Tobacco Smoker Type: Cigarettes Amount Used/How Often: 1/2 PPD Length of Time of Smoking/Using Tobacco: Since Age 24 Have You Smoked in the Last Year: Yes Household Exposure Type: Cigarettes - Immunization History Most Recent Influenza Vaccination: July 2017 Review of Systems ENT: Sore Throat, Sinus Congestion, Sinus Pain/Tenderness Respiratory: Cough All Other Systems Reviewed And Are Negative: Yes Physical Exam Triage Information Reviewed: Yes Appearance: Well-Appearing, No Pain Distress, Well-Nourished Vital Signs: Initial Vital Signs Temp 99.3 F 04/21/18 08:27 Pulse 87 04/21/18 08:27 Resp 17 04/21/18 08:27 BP 141/90 04/21/18 08:27 Pulse Ox 98 04/21/18 08:27 Vital Signs Reviewed: Yes Eyes: Positive: Conjunctiva Clear ENT: Positive: Normal ENT inspection, Pharynx normal, Nasal congestion, TMs normal, Uvula midline. Negative: TM bulging, TM dull, TM red, Tonsillar swelling, Tonsillar exudate, Trismus, Muffled voice, Hoarse voice, Sinus tenderness Neck: Positive: Supple, Nontender, No Lymphadenopathy Respiratory: Positive: Lungs clear, Normal breath sounds, No respiratory distress, No accessory muscle use. Negative: Respiratory distress, Decreased breath sounds, Accessory muscle use, Crackles, Rhonchi, Stridor, Wheezing Cardiovascular: Positive: No Murmur, Pulses Normal, Brisk Capillary Refill Abdomen Description: Positive: No Organomegaly, Soft. Negative: Distended, Guarding Musculoskeletal: Positive: Strength Intact, ROM Intact. Negative: No Edema Neurological: Positive: Alert, Muscle Tone Normal. Negative: Fatigued Psychological: Positive: Age Appropriate Behavior Skin: Negative: rashes UC Diagnostic Evaluation - Laboratory O2 Sat by Pulse Oximetry: 98 Respiratory Course/Dx - Differential Dx/Diagnosis Provider Diagnoses: uri. early sinusitis. Discharge - Sign-Out/Discharge Documenting (check all that apply): Patient Departure - Discharge Plan Condition: Good Disposition: HOME Prescriptions: Azithromyxin JAMEL (NF) [Z-Jamel (Zithromax) 250 mg tabs #6] 2 tab PO .TODAY, THEN 1 DAILY #6 tab Patient Education Materials: Upper Respiratory Infection (DC) Referrals: Kishan Borden [Primary Care Provider] - Additional Instructions: Continue decongestants and start netti pot. Start antibiotic today or if symptoms worsen. - Billing Disposition and Condition Condition: GOOD Disposition: Home
== END 2018-04-21 09:28 | disposition home or self-care (01) ==
LOC: UCCORT 08:07
DX: J01.90 Acute sinusitis, unspecified (principal); F17.210 Nicotine dependence, cigarettes, uncomplicated
CPT/HCPCS: 99212; G0463